=== PATIENT | female | born 1990 | race Caucasian/White ===

== ENCOUNTER 2024-05-02 18:00 | Emergency (ER) | payer OTHER, SELFPAY ==
[2024-05-02 18:04] VITALS: BP 131/81; PULSE 85; TEMP 36.7; O2SAT 99; BMI 36.3
--- NOTE | 2024-05-02 18:10 | XR_ITS ---
[facility] [id number] Patient Name: ZAFAR MIGUEL MRN: [id number] date: 1990 Sex: F Assigned Patient Location: ER Current Patient Location: Accession/Order Number: [id number] Exam Date: 05/02/2024 18:35 Report Date: 05/02/2024 19:55 At the request of: CANDY FLOYD Procedure: XR hand LT min 3V EXAMINATION: XR hand LT min 3V, , 05/02/2024 6:35 PM EDT INDICATION: hand pain HISTORY: Ordering Provider Reason for Exam: hand pain Technologist Note: Additional: COMPARISON: None. TECHNIQUE: Left hand x-ray: 3 view(s). FINDINGS: No acute fracture. Joint alignment is anatomic. Joint spaces are preserved. Soft tissues are within normal limits. XR/XR hand LT min 3V IMPRESSION: No acute fracture or traumatic malalignment. Electronically authenticated by: MARIELA COY Date: 05/02/2024 19:55
--- NOTE | 2024-05-02 18:12 | PC.NURSE ---
slight swelling to outside of left hand. no bruising and skin intact. pt denies any injury to this.
--- NOTE | 2024-05-02 19:09 | ED_ITS ---
HPI HPI - Extremity Injury (Upper) General Chief Complaint: Extremity Injury, Upper Stated Complaint: Upper Extremity Injury Time Seen by Provider: 05/02/24 18:09 Source: patient Mode of arrival: walk-in History of Present Illness HPI narrative: Patient is a 33-year-old female who presents to the emergency department for 3- day history of pain over the left ulna radiating into the left fifth metacarpal of the hand. She denies any mechanism of injury or trauma. She states she feels as though her hand is broken although she cannot imagine why it would be. No medications taken prior to arrival today. She states she has been doing a lot of work for her child's birthday constitution party. Pain is worse with range of motion at the wrist. Related Data Previous Rx's ?Medication ?Instructions ?Recorded ketorolac 10 mg tablet 10 mg PO TID PRN pain #10 tabs 05/02/24 prednisone 20 mg tablet 60 mg (3 x 20 mg) PO DAILY 3 days 05/02/24 #9 tabs Allergies Allergy/AdvReac Type Severity Reaction Status Date / Time Penicillins Allergy Severe Hives Verified 05/02/24 18:09 Opioid HPI Opioid Management Most Recent Pain and Opioid Data: Last ED Pain Assessment 05/02/24 18:25 Review of Systems ROS Constitutional Denies: fever or chills Ears, nose, mouth, and throat Denies: throat pain or nasal congestion Cardiovascular Denies: chest pain Respiratory Denies: shortness of breath Gastrointestinal Denies: nausea or vomiting Musculoskeletal Reports: extremity pain; Denies: back pain or neck pain Integumentary/Breast Denies: rash Neurological Denies: headache Hematologic/Lymphatic Denies: easy bruising or easy bleeding Exam Narrative Exam Narrative: Gen.: Awake, alert, in no distress Head: Normocephalic, atraumatic ENT: Moist mucous membranes Respiratory: No respiratory distress Extremities: Left hand with well-healed skin graft to the medial aspect of the hand. Diffuse tenderness of the left ulna and left fifth metacarpal with mild edema noted. Limited range of motion of flexion extension at the left wrist. 2+ left radial pulse. Psych: Normal mood and affect Neuro: No focal neuro deficit Skin: Warm, dry, intact Constitutional Vital Signs, click to edit/add: Last Vital Signs Temp 98.1 F 05/02/24 18:04 Pulse 85 05/02/24 18:04 Resp 18 05/02/24 18:04 BP 131/81 05/02/24 18:04 Pulse Ox 99 05/02/24 18:04 O2 Del Method Room Air 05/02/24 18:04 Course Vital Signs Vital signs: Vital Signs Temperature 98.1 F 05/02/24 18:04 Pulse Rate 85 05/02/24 18:04 Respiratory Rate 18 05/02/24 18:04 Blood Pressure 131/81 05/02/24 18:04 Pulse Oximetry 99 05/02/24 18:04 Oxygen Delivery Method Room Air 05/02/24 18:04 Temperature 98.1 F 05/02/24 18:04 Pulse Rate 85 05/02/24 18:04 Respiratory Rate 18 05/02/24 18:04 Blood Pressure 131/81 05/02/24 18:04 Pulse Oximetry 99 05/02/24 18:04 Oxygen Delivery Method Room Air 05/02/24 18:04 MDM - Extremity Injury (Upper) MDM Narrative Medical decision making narrative: X-rays of the left hand are unremarkable. Patient placed in an Jorge wrap and discharged home to follow-up with PCP. NSAIDs and steroids given in the ER. She is neurovascularly intact at discharge. Rest, ice, elevate. Follow-up PCP and return to the ER if symptoms change or worsen SUPERVISED APC VISIT, PHYSICIAN ATTESTATION: Based on the medical record the care appears appropriate. ? Medical Records Attestation: I reviewed the patient's medical records. Discharge Plan Discharge Stand Alone Forms: Portal Instructions Chief Complaint: Extremity Injury, Upper Clinical Impression: Left hand pain, Left wrist tendinitis Patient Disposition: Home, Self-Care Time of Disposition Decision: 19:07 Condition: Good Prescriptions / Home Meds: New prednisone 20 mg tablet 60 mg PO DAILY 3 Days Qty: 9 0RF ketorolac 10 mg tablet 10 mg PO TID PRN (Reason: pain) Qty: 10 0RF Print Language: Sami Instructions: Tendinitis (ED) Referrals: LATESHA RIVERA [Primary Care Provider] - 1 week
[2024-05-02] MEDS: KETOROLAC TROMETHAMINE 10 MG TABLET PO (19:17)
[2024-05-02] MEDS: PREDNISONE 20 MG TABLET 60 MG PO (19:17)
[2024-05-02 19:23] VITALS: BP 145/85; PULSE 80; O2SAT 99
== END 2024-05-02 19:23 | disposition home or self-care (01) ==
PROVIDERS: Emergency Provider Student in an Organized Health Care Education/Training Program; PCP Nurse Practitioner Family
DX: M77.8 Other enthesopathies, not elsewhere classified (principal); M79.642 Pain in left hand
CPT/HCPCS: 73130; 99283; J7512